=== PATIENT | male | born 1955 | race Caucasian/White ===

== ENCOUNTER → 2023-11-24 13:53 | Outpatient (REF) | payer OTHER, SELFPAY | LOC: RAD 13:53 | PROVIDERS: ATTENDING PHYSICIAN Family Medicine | DX: M79.641 Pain in right hand (principal) | CPT/HCPCS: 73120 ==

== ENCOUNTER → 2024-01-26 11:10 | Outpatient (REF) | payer OTHER, SELFPAY | LOC: RAD 11:10 | PROVIDERS: ATTENDING PHYSICIAN Internal Medicine Rheumatology; FAMILY PHYSICIAN Family Medicine | DX: E07.9 Disorder of thyroid, unspecified (principal); M54.2 Cervicalgia; M79.641 Pain in right hand; R76.8 Other specified abnormal immunological findings in serum | CPT/HCPCS: 72040 ==

== ENCOUNTER → 2025-01-21 15:12 | Outpatient (REF) | payer OTHER, SELFPAY | LOC: RAD 15:12 | PROVIDERS: ATTENDING PHYSICIAN Family Medicine | DX: R91.8 Other nonspecific abnormal finding of lung field (principal) | CPT/HCPCS: 71260; Q9967 ==

== ENCOUNTER → 2025-02-06 16:35 | Outpatient (REF) | payer OTHER, SELFPAY | LOC: RAD 16:35 | PROVIDERS: ATTENDING PHYSICIAN Internal Medicine Critical Care Medicine; FAMILY PHYSICIAN Family Medicine | DX: R91.8 Other nonspecific abnormal finding of lung field (principal) | CPT/HCPCS: 71250 ==

== ENCOUNTER 2025-02-10 06:08 | Day surgery (SDC) | payer OTHER, SELFPAY ==
[2025-02-04 08:50] LABS: Hematocrit 43.8 % (39.0-52.0); Hemoglobin 14.8 g/dL (13.0-18.0); Mean Corp Hgb Conc. 33.8 g/dL (33.0-37.0); Mean Corpuscular Hgb 32.1 pg (27.0-31.0); Mean Platelet Volume 11.2 fL (7.4-10.4); Platelet Count 192 10^3/uL (130-400); Red Blood Cell Count 4.61 10^6/uL (4.70-6.10); Red Cell Dist. Width 12.1 % (11.5-14.5); White Blood Cell Count 6.7 10^3/uL (4.8-10.8)
[2025-02-04 09:10] LABS: INR 0.97; PT 13.2 Sec (11.4-14.6)
[2025-02-04 09:11] LABS: APTT 28.3 Sec (23.4-35.0)
[2025-02-04 09:18] LABS: Blood Urea Nitrogen 24 mg/dl (9-20); Calcium 9.5 mg/dl (8.4-10.2); Carbon Dioxide 30 mmol/L (22-30); Chloride 101 mmol/L (98-107); Glucose 100 mg/dl (70-99); Potassium 4.3 mmol/L (3.5-5.1); Sodium 140 mmol/L (135-145); eGFR > 60.00
[2025-02-04 13:39] VITALS: BMI 28.1
[2025-02-10] VITALS (9 sets, daily range): BP systolic 117–146; BP diastolic 65–85; BMI 28.1
== END 2025-02-10 10:44 | disposition home or self-care (01) ==
LOC: SDS 06:08
PROVIDERS: ATTENDING PHYSICIAN Internal Medicine Critical Care Medicine; FAMILY PHYSICIAN Family Medicine
DX: R91.8 Other nonspecific abnormal finding of lung field (principal); R06.02 Shortness of breath
CPT/HCPCS: 31629; 31628; 31624; 31623; 31627; 31654; 88173; 88305; 88312; 71045; 76000; 80048; 85027; 85610; 85730; 87015; 87070; 87077; 87102; 87116; 87186; 87205; 88112; 88333; 93005; 94640; C1887

== ENCOUNTER → 2025-03-07 11:59 | Outpatient (REF) | payer OTHER, SELFPAY | LOC: RAD 11:59 | PROVIDERS: ATTENDING PHYSICIAN Internal Medicine Critical Care Medicine | DX: A49.8 Other bacterial infections of unspecified site (principal) | CPT/HCPCS: 71046 ==

== ENCOUNTER → 2025-04-08 13:24 | Outpatient (REF) | payer OTHER, SELFPAY | LOC: RAD 13:24 | PROVIDERS: ATTENDING PHYSICIAN Internal Medicine Critical Care Medicine; FAMILY PHYSICIAN Family Medicine | DX: J85.2 Abscess of lung without pneumonia (principal); J98.6 Disorders of diaphragm; A49.8 Other bacterial infections of unspecified site | CPT/HCPCS: 71046; 76000 ==

== ENCOUNTER 2025-05-09 06:24 | Day surgery (SDC) | payer OTHER, SELFPAY | END 2025-05-09 08:35 | disposition home or self-care (01) | LOC: GI 06:24 | PROVIDERS: ATTENDING PHYSICIAN Internal Medicine Gastroenterology | DX: Z12.11 Encounter for screening for malignant neoplasm of colon (principal); K64.8 Other hemorrhoids; D12.2 Benign neoplasm of ascending colon; K63.5 Polyp of colon; Z80.0 Family history of malignant neoplasm of digestive organs | CPT/HCPCS: 45385; 45380; 88305 ==